=== PATIENT | male | born 1935 | race Caucasian/White ===

== ENCOUNTER → 2018-05-14 | Outpatient (CLI) | payer MEDICARE ==
[~2018-05-14] MED LIST: ALPR0.5T PO; ASPI-630 PO; CARV10CP PO; CARV6.25 PO; CRESTOR10 MG PO; DULO60CA6 PO; ENAL20TA PO; FENT1PAT15 TD; FERR325T14 PO; FURO-69 PO; GLIM2TAB2 PO; GLIM4TAB2 PO; HYDR-2762 PO; HYDR12.58 PO; LOPE2CAP PO; METF10007 PO; PANT20TA2 PO; REGADENOSON 0.4 MG/5 ML DISP.SYRIN. IV ONE; SODI650T PO; TAMS0.4C2 PO; TRAZ-85 PO
--- NOTE | 2018-05-14 11:25 | RAD ---
MR#: [id number] Date of Study: 05/14/2018 Ordering Physician: SUNIL VALDEZ, Referring Physician: [place] PHILIP: Sangita Julio RDMS RVT APPROVED REPORT Patient Location: OUT-PATIENT Indications KAVITA LEG PAIN VELOCITY AND DOPPLER WAVEFORM ANALYSIS RIGHT cm/secWaveformSeverity LEFT cm/secWaveform Severity pCFA 134.2TriphasicpCFA 126.5Triphasic Prof Fem Art. 116.6TriphasicProf Fem Art. 91.4Triphasic Fem Art Prox. 102.7BiphasicFem Art Prox. 117.9Triphasic Fem Art Mid. 48.9TriphasicFem Art Mid. 71.0Triphasic Fem Art Dist. 241.9BiphasicFem Art Dist. 92.5Biphasic Pop Art(Fossa) 54.0BiphasicPop Art(AK) 54.5Triphasic FREIGHT WEIGHER Dist. 49.0BiphasicPTA Dist. 56.7Triphasic Per Art Dist.27.0BiphasicPer Art Dist.59.5Triphasic SUHAS Dist. 49.0BiphasicATA Dist. 56.7Triphasic DPA 30BiphasicDPA 78Biphasic Findings Grayscale images of the bilateral lower extent B arterial vessels reveal diffuse anthracotic plaque On the right there is likely greater than 75% stenosis involving the mid to distal SFA. There blunted waveforms below the knee but patent 3 vessel runoff is noted. On the left there is mild diffuse atherosclerosis but no focal stenosis is identified with good 3 ves [place] runoff below the knee. Critical Notification Critical Value: No <Conclusion> 1. Probable greater than 75% stenosis involving the mid to distal SFA on the right side. 2. No significant left lower extremity arterial disease. 3. Bilateral three-vessel runoff below the knees. Signed by : Wayne [facility], Electronically Approved : 05/14/2018 11:24:27
--- NOTE | 2018-05-14 13:50 | RAD ---
MR#: [id number] Date of Study: 05/14/2018 Ordering Physician: SUNIL VALDEZ Referring Physician: SAWYER PHILIP Tech: RT Coretta Herrera) (N) APPROVED REPORT Test Type: Pharmacological Stress Nurse/Tech: Angely Ziegler RN Test Indications: CAD Cardiac History: Hypertension,2 stents,AICD with Pacemaker Medications: See Electronic Medical Record Medical History: See Electronic Medical Record Resting ECG: Paced Rhythm Resting Heart Rate: 87 bpm Resting Blood Pressure: 104/53mmHg Pretest Chest Pain: No chest pain Nurse/Tech Notes S1,S2 and lungs are slightly diminished. Consent: The procedure was explained to the patient in lay terms. Informed consent was witnessed. Rafi eout was entered into [employer]. History and Stress Test performed by RT Jay (R) (N) Pharm. Details Pharmacologic stress testing was performed using 0.4mg per 5ml of regadenoson given intravenously ove r 7-10 seconds. Stress Symptoms No chest pain or symptoms. POST EXERCISE Reason for Termination: Infusion complete Target HR: Yes Max HR: 136 bpm Max Blood Pressure: 105/45mmHg Blood Pressure response to exercise: Normal blood pressure response during stress. Heart Rate response to exercise: WNL Chest Pain: No. Arrhythmia: No. ST Change: No. INTERPRETATION Stress EKG Conclusion: Baseline EKG showed ventricular paced rhythm. Non diagnostic changes at peak stress. Imaging Protocol IMAGE PROTOCOL: Rest Tc-99m/stress Tc-99m 1 day Rest: Stress: Viability: Radiopharm.Tc99m OrxfcgbucFs48p Sestamibi Roqo68dLb 34mCi Duration 15min. 12min. Img Date 05/14/2018 05/14/2018 Inj-Img Lbsm30pxf. 60min. Rest Admin Site:IV - Right AntecubitalAdministrator:RT Coretta Thompson)(N) Stress Admin Site: IV - Right AntecubitalAdministrator: RT Jay (Emily)(N) STRESS DATA End Diast. Vol.92.0mlAv. Heart Rate88.0bpm End Syst. Vol.27.0mlCO Index BSA5.7L/min Myocardial Veio569.0gEject. Onvfwuia77.0% Stress Rates Pk. Fill Rate3.13EDV/secLVtime Pk. Fill 85.23msec Pk. Empty Rate4.32ESV/secLVtime Pk. Zhyxa922.59msec 1/3 Pk. Fill2.01EDV/sec Stress Scores Regional WT1.00Summed WT6.00 Regional WM0.00Summed WM7.00 Study quality was good. Left Ventricular size was Normal at Rest and Stress. Lung uptake was . Left Ventricular ejection fraction is 71%. The rest and stress images show normal perfusion, normal contraction and thickening. LV Perf. Quant 17 Seg. SSS5.00 17 Seg. SRS7.00 17 Seg. SDS0.00 Stress Defect Extent (% LAD)0.00Rest Defect Extent (% LAD)0.00Rev. Defect Extent (% LAD)0.00 Stress Defect Extent (% LCX) 45.00Rest Defect Extent (% LCX)43.80Rev. Defect Extent (% LCX)0.00 Stress Defect Extent (% RCA)0.00Rest Defect Extent (% RCA)7.80Rev. Defect Extent (% RCA)0.00 Stress Defect Extent (% MICHAEL)7.80Rest Defect Extent (% MICHAEL)10.00Rev. Defect Extent (% MICHAEL)0.00 Conclusion 1. Regadenoson cardioisotope stress test did not show any evidence of ischemia or infarct. 2. Normal left ventricular systolic function with ejection fraction calculated at 71%. 3. Low risk for cardiac events. Signed by : Sunil Valdez, Electronically Approved : 05/14/2018 13:48:46
== END | disposition home or self-care (01) ==
LOC: NM 08:39
PROVIDERS: ATTEND Internal Medicine Cardiovascular Disease
DX: I25.10 Atherosclerotic heart disease of native coronary artery without angina pectoris (principal); I25.5 Ischemic cardiomyopathy; Z87.19 Personal history of other diseases of the digestive system
CPT/HCPCS: 78452; 93017; 93925; 96374; 96375; 96376; A9500; J2785